=== PATIENT | female | born 1985 | race African-American/Black ===

== ENCOUNTER 2016-12-30 14:42 | Emergency (ER) | payer BC ==
[~2016-12-30] VITALS: Ht 170.2 cm; Wt 105.7 kg
[2016-12-30 15:50] VITALS: BP 134/80
== END 2016-12-30 16:21 | disposition home or self-care (01) ==
LOC: ED 14:42
DX: S13.4XXA Sprain of ligaments of cervical spine, initial encounter (principal); V43.52XA Car driver injured in collision with other type car in traffic accident, initial encounter; Y93.19 Activity, other involving water and watercraft; Y92.488 Other paved roadways as the place of occurrence of the external cause; Y99.8 Other external cause status
CPT/HCPCS: J1885

== ENCOUNTER 2017-01-03 06:30 | Emergency (ER) | payer BC ==
[~2017-01-03] VITALS: Ht 167.6 cm; Wt 107.5 kg
[2017-01-03 07:16] VITALS: BP 129/78
== END 2017-01-03 07:16 | disposition home or self-care (01) ==
LOC: ED 06:30
DX: S39.012A Strain of muscle, fascia and tendon of lower back, initial encounter (principal); V49.49XA Driver injured in collision with other motor vehicles in traffic accident, initial encounter; Y93.89 Activity, other specified; Y99.8 Other external cause status; Y92.411 Interstate highway as the place of occurrence of the external cause

== ENCOUNTER 2018-08-29 16:10 | Emergency (ER) | payer SELFPAY ==
[~2018-08-29] VITALS: Ht 167.6 cm; Wt 86.2 kg
[2018-08-29 16:22] VITALS: Ht 167.6 cm; Wt 86.2 kg
[2018-08-29 18:41] VITALS: BP 110/64
== END 2018-08-29 18:41 | disposition home or self-care (01) ==
LOC: ED 16:10
DX: R07.89 Other chest pain (principal); V43.52XA Car driver injured in collision with other type car in traffic accident, initial encounter; Y93.I9 Activity, other involving external motion; Y92.413 State road as the place of occurrence of the external cause; Y99.8 Other external cause status
CPT/HCPCS: Q0092